=== PATIENT | male | born 1960 | race Caucasian/White ===

== ENCOUNTER 2021-05-07 13:17 | Inpatient (IN) | payer OTHER ==
[2021-05-07 16:00] VITALS: BMI 30.9
[2021-05-07] MEDS ORDERED: MAG HYDROX/AL HYDROX/SIMETH 30 ML UNIT-DOSE CUP PO PRN (18:28)
[2021-05-07] MEDS ORDERED: IBUPROFEN 400 MG TABLET (FP) PO PRN (18:28)
[2021-05-07] MEDS ORDERED: METHOCARBAMOL 500 MG TABLET PO PRN (18:28)
[2021-05-07] MEDS ORDERED: ACETAMINOPHEN 325 MG TABLET (FP) PO PRN ×2 (18:28)
[2021-05-07] MEDS ORDERED: MAGNESIUM CITRATE 300 ML BOTTLE PO PRN (18:28)
[2021-05-07] MEDS ORDERED: NICOTINE POLACRILEX 2 MG GUM BUC PRN (18:28)
[2021-05-07] MEDS ORDERED: MENTHOL/PHENOL 1 EACH UD MM PRN (18:28)
[2021-05-07] MEDS ORDERED: ONDANSETRON *ODT* 4 MG TABLET SL PRN (18:28)
[2021-05-07] MEDS ORDERED: MAGNESIUM HYDROX 2400MG/30ML ORAL SUSPENSION 30 ML CUP PO PRN (18:28)
[2021-05-07] MEDS ORDERED: BISMUTH SUBSALICYLATE 524 MG/30 ML PO PRN (18:28)
[2021-05-07] MEDS ORDERED: MELATONIN 5 MG TABLETS PO SCH (22:00)
[2021-05-07] MEDS ORDERED: THIAMINE HCL 100 MG TABLET (FP) PO SCH (22:00)
[2021-05-07] MEDS: hydrOXYzine PAMOATE 25 MG CAPSULE (FP) PO SCH (22:36)
[2021-05-08] MEDS: hydrOXYzine PAMOATE 25 MG CAPSULE (FP) PO SCH ×3 (06:03→14:51)
[2021-05-08] MEDS ORDERED: PRENATAL VITAMINS W/ FOLIC ACID TABLET (FP) PO SCH (10:00)
[2021-05-08 10:41] LABS: ALBUMIN 3.3 g/dl (3.4-5.0); CALCIUM 8.8 mg/dL (8.5-10.1)
[2021-05-08 10:42] LABS: BLOOD UREA NITROGEN 17.4 mg/dL (7-18)
[2021-05-08 10:46] LABS: BILIRUBIN,TOTAL 0.4 mg/dL (0.2-1); TOT PROT 6.6 g/dl (6.4-8.2)
[2021-05-08 11:03] LABS: HEMATOCRIT 36.9 % (35.4-49); HEMOGLOBIN 12.7 GM/dL (11.7-16.9); MCH 32.5 pg (25.7-33.7); MCHC 34.4 g/dl (32.0-35.9); MEAN CELL VOLUME 94.5 fl (80-96); MEAN PLT VOLUME 8.1 fl (7.5-11.1); PLATELET COUNT 181 10^3/uL (134-434); RBC 3.91 M/mm3 (4.00-5.60); RDW 13.4 % (11.9-15.9); WHITE BLOOD COUNT 3.8 K/mm3 (4.0-10.0)
[2021-05-08 13:23] VITALS: BP 138/95; PULSE 64; TEMP 96.9
[2021-05-09] MEDS ORDERED: ESCITALOPRAM OXALATE 20 MG TABLET PO SCH ×2 (10:00)
== END 2021-05-08 17:45 | disposition other institution (70) | DRG 897 ==
LOC: YASAS 13:17 → UNDOADMIN 18:26 → Y6N 18:26
PROVIDERS: ADMIT Allergy & Immunology; ATTEND Allergy & Immunology
PROC: HZ2ZZZZ Detoxification Services for Substance Abuse Treatment (ICD-10-PCS; principal; 2021-05-07)
DX: F10.230 Alcohol dependence with withdrawal, uncomplicated (principal); F14.20 Cocaine dependence, uncomplicated; F13.20 Sedative, hypnotic or anxiolytic dependence, uncomplicated; F19.259 Other psychoactive substance dependence with psychoactive substance-induced psychotic disorder, unspecified; F19.24 Other psychoactive substance dependence with psychoactive substance-induced mood disorder; F03.90 Unspecified dementia, unspecified severity, without behavioral disturbance, psychotic disturbance, mood disturbance, and anxiety; F20.9 Schizophrenia, unspecified; Z62.810 Personal history of physical and sexual abuse in childhood; Z87.891 Personal history of nicotine dependence; Z56.0 Unemployment, unspecified; Z59.0 Homelessness
CPT/HCPCS: 36415; 80053; 85027; 86780; C9803; U0003; U0005

== ENCOUNTER 2021-05-08 17:29 | Inpatient (IN) | payer OTHER ==
[2021-05-08] MEDS ORDERED: MAGNESIUM CITRATE 300 ML BOTTLE PO PRN (18:19)
[2021-05-08] MEDS ORDERED: MENTHOL/PHENOL 1 EACH UD MM PRN (18:19)
[2021-05-08] MEDS ORDERED: guaiFENesin 200 MG/10 ML 10 ML UNIT-DOSE CUPS PO PRN (18:19)
[2021-05-08] MEDS ORDERED: MAGNESIUM HYDROX 2400MG/30ML ORAL SUSPENSION 30 ML CUP PO PRN (18:19)
[2021-05-08] MEDS ORDERED: P-EPHED 60MG/TRIPROLIDI 2.5MG TABLET PO PRN (18:19)
[2021-05-08] MEDS ORDERED: LOPERAMIDE HCL 2 MG CAPSULE PO PRN (18:19)
[2021-05-08] MEDS ORDERED: NICOTINE POLACRILEX 2 MG GUM BUC PRN (18:19)
[2021-05-08] MEDS: MELATONIN 5 MG TABLETS PO SCH (21:27)
[2021-05-08] MEDS: THIAMINE HCL 100 MG TABLET (FP) PO SCH (21:27)
[2021-05-08] MEDS ORDERED: hydrOXYzine PAMOATE 25 MG CAPSULE (FP) PO SCH (22:00)
[2021-05-08] MEDS: CARVEDILOL 25 MG TABLET (FP) PO SCH (22:29)
[2021-05-09] MEDS: ACETAMINOPHEN 325 MG TABLET (FP) PO PRN (06:09)
[2021-05-09] MEDS: LOSARTAN POTASSIUM 50 MG TABLET PO SCH (09:37)
[2021-05-09] MEDS: PRENATAL VITAMINS W/ FOLIC ACID TABLET (FP) PO SCH (09:37)
[2021-05-09] MEDS: CARVEDILOL 25 MG TABLET (FP) PO SCH ×2 (09:38→21:34)
[2021-05-09] MEDS ORDERED: NICOTINE 7 MG/24 HOURS TOPICAL PATCH TD SCH (10:00)
[2021-05-09 11:40] LABS: HIV INTERPRETATION NEGATIVE (NEGATIVE)
[2021-05-09] MEDS ORDERED: PNEUMOC 13-VAL CONJ-DIP CRM/PF 0.5 ML DISP.SYRIN IM ONE (12:00)
[2021-05-09] MEDS ORDERED: PNEUMOCOCCAL 23 VACCINE 0.5 ML VIAL IM ONE (12:00)
[2021-05-09] MEDS ORDERED: FLU VACCINE (FLULAVAL) PF 60 MCG/0.5 ML SYRINGE 2020-2021 IM ONE (12:00)
[2021-05-09] MEDS: THIAMINE HCL 100 MG TABLET (FP) PO SCH (21:34)
[2021-05-09] MEDS: MELATONIN 5 MG TABLETS PO SCH (21:35)
[2021-05-10] MEDS: LOSARTAN POTASSIUM 50 MG TABLET PO SCH (09:46)
[2021-05-10] MEDS: PRENATAL VITAMINS W/ FOLIC ACID TABLET (FP) PO SCH (09:46)
[2021-05-10] MEDS: CARVEDILOL 25 MG TABLET (FP) PO SCH ×2 (09:47→21:36)
[2021-05-10] MEDS: hydrOXYzine PAMOATE 25 MG CAPSULE (FP) PO PRN (21:36)
[2021-05-10] MEDS: THIAMINE HCL 100 MG TABLET (FP) PO SCH (21:36)
[2021-05-10] MEDS: MELATONIN 5 MG TABLETS PO SCH (21:37)
[2021-05-11] MEDS: LOSARTAN POTASSIUM 50 MG TABLET PO SCH (09:49)
[2021-05-11] MEDS: PRENATAL VITAMINS W/ FOLIC ACID TABLET (FP) PO SCH (09:49)
[2021-05-11] MEDS: CARVEDILOL 25 MG TABLET (FP) PO SCH ×2 (09:49→21:46)
[2021-05-11] MEDS: hydrOXYzine PAMOATE 25 MG CAPSULE (FP) PO PRN ×2 (09:50→21:46)
[2021-05-11] MEDS: THIAMINE HCL 100 MG TABLET (FP) PO SCH (21:46)
[2021-05-11] MEDS: MELATONIN 5 MG TABLETS PO SCH (21:46)
[2021-05-12] MEDS: PRENATAL VITAMINS W/ FOLIC ACID TABLET (FP) PO SCH (09:44)
[2021-05-12] MEDS: CARVEDILOL 25 MG TABLET (FP) PO SCH ×2 (09:44→21:22)
[2021-05-12] MEDS: hydrOXYzine PAMOATE 25 MG CAPSULE (FP) PO PRN (09:44)
[2021-05-12] MEDS: LOSARTAN POTASSIUM 50 MG TABLET PO SCH (09:44)
[2021-05-12] MEDS: MAG HYDROX/AL HYDROX/SIMETH 30 ML UNIT-DOSE CUP PO PRN ×2 (14:56→21:23)
[2021-05-12] MEDS: MELATONIN 5 MG TABLETS PO SCH (21:22)
[2021-05-12] MEDS: THIAMINE HCL 100 MG TABLET (FP) PO SCH (21:22)
[2021-05-13] MEDS: CARVEDILOL 25 MG TABLET (FP) PO SCH ×2 (09:46→21:45)
[2021-05-13] MEDS: PRENATAL VITAMINS W/ FOLIC ACID TABLET (FP) PO SCH (09:46)
[2021-05-13] MEDS: LOSARTAN POTASSIUM 50 MG TABLET PO SCH (09:46)
[2021-05-13] MEDS: MAG HYDROX/AL HYDROX/SIMETH 30 ML UNIT-DOSE CUP PO PRN (09:48)
[2021-05-13] MEDS ORDERED: PANTOPRAZOLE 40 MG TABLET PO ONE (12:34)
[2021-05-13] MEDS: THIAMINE HCL 100 MG TABLET (FP) PO SCH (21:45)
[2021-05-13] MEDS: hydrOXYzine PAMOATE 25 MG CAPSULE (FP) PO PRN (21:46)
[2021-05-13] MEDS: MELATONIN 5 MG TABLETS PO SCH (21:46)
[2021-05-14] MEDS: PRENATAL VITAMINS W/ FOLIC ACID TABLET (FP) PO SCH (09:58)
[2021-05-14] MEDS: hydrOXYzine PAMOATE 25 MG CAPSULE (FP) PO PRN (09:59)
[2021-05-14] MEDS: PANTOPRAZOLE 40 MG TABLET PO SCH (09:59)
[2021-05-14] MEDS: LOSARTAN POTASSIUM 50 MG TABLET PO SCH (09:59)
[2021-05-14] MEDS: CARVEDILOL 25 MG TABLET (FP) PO SCH ×2 (09:59→22:49)
[2021-05-14] MEDS: MELATONIN 5 MG TABLETS PO SCH (21:16)
[2021-05-14] MEDS: THIAMINE HCL 100 MG TABLET (FP) PO SCH (21:16)
[2021-05-15] MEDS: CARVEDILOL 25 MG TABLET (FP) PO SCH ×2 (09:56→21:21)
[2021-05-15] MEDS: PRENATAL VITAMINS W/ FOLIC ACID TABLET (FP) PO SCH (09:56)
[2021-05-15] MEDS: LOSARTAN POTASSIUM 50 MG TABLET PO SCH (09:56)
[2021-05-15] MEDS: PANTOPRAZOLE 40 MG TABLET PO SCH (09:57)
[2021-05-15] MEDS: THIAMINE HCL 100 MG TABLET (FP) PO SCH (21:22)
[2021-05-15] MEDS: hydrOXYzine PAMOATE 25 MG CAPSULE (FP) PO PRN (21:22)
[2021-05-15] MEDS: MELATONIN 5 MG TABLETS PO SCH (21:22)
[2021-05-16] MEDS: PRENATAL VITAMINS W/ FOLIC ACID TABLET (FP) PO SCH (09:53)
[2021-05-16] MEDS: PANTOPRAZOLE 40 MG TABLET PO SCH (09:54)
[2021-05-16] MEDS: CARVEDILOL 25 MG TABLET (FP) PO SCH ×2 (09:54→21:28)
[2021-05-16] MEDS: IBUPROFEN 400 MG TABLET (FP) PO PRN (09:55)
[2021-05-16] MEDS: hydrOXYzine PAMOATE 25 MG CAPSULE (FP) PO PRN ×2 (09:57→21:28)
[2021-05-16] MEDS: LOSARTAN POTASSIUM 50 MG TABLET PO SCH (11:48)
[2021-05-16] MEDS: MELATONIN 5 MG TABLETS PO SCH (21:28)
[2021-05-16] MEDS: THIAMINE HCL 100 MG TABLET (FP) PO SCH (21:28)
[2021-05-17] MEDS: IBUPROFEN 400 MG TABLET (FP) PO PRN (06:28)
[2021-05-17] MEDS: PRENATAL VITAMINS W/ FOLIC ACID TABLET (FP) PO SCH (09:51)
[2021-05-17] MEDS: PANTOPRAZOLE 40 MG TABLET PO SCH (09:51)
[2021-05-17] MEDS: CARVEDILOL 25 MG TABLET (FP) PO SCH ×2 (09:51→21:40)
[2021-05-17] MEDS: LOSARTAN POTASSIUM 50 MG TABLET PO SCH (09:51)
[2021-05-17] MEDS: THIAMINE HCL 100 MG TABLET (FP) PO SCH (21:39)
[2021-05-17] MEDS: hydrOXYzine PAMOATE 25 MG CAPSULE (FP) PO PRN (21:40)
[2021-05-17] MEDS: MELATONIN 5 MG TABLETS PO SCH (21:41)
[2021-05-18] MEDS: ACETAMINOPHEN 325 MG TABLET (FP) PO PRN (00:40)
[2021-05-18] MEDS: LOSARTAN POTASSIUM 50 MG TABLET PO SCH (09:44)
[2021-05-18] MEDS: PRENATAL VITAMINS W/ FOLIC ACID TABLET (FP) PO SCH (09:44)
[2021-05-18] MEDS: CARVEDILOL 25 MG TABLET (FP) PO SCH ×2 (09:44→21:33)
[2021-05-18] MEDS: PANTOPRAZOLE 40 MG TABLET PO SCH (09:44)
[2021-05-18] MEDS: THIAMINE HCL 100 MG TABLET (FP) PO SCH (21:33)
[2021-05-18] MEDS: MELATONIN 5 MG TABLETS PO SCH (21:33)
[2021-05-19] MEDS: IBUPROFEN 400 MG TABLET (FP) PO PRN (01:36)
[2021-05-19] MEDS ORDERED: MASKS NR ONE (07:20)
[2021-05-19] MEDS: LOSARTAN POTASSIUM 50 MG TABLET PO SCH (09:47)
[2021-05-19] MEDS: PANTOPRAZOLE 40 MG TABLET PO SCH (09:47)
[2021-05-19] MEDS: PRENATAL VITAMINS W/ FOLIC ACID TABLET (FP) PO SCH (09:47)
[2021-05-19] MEDS: CARVEDILOL 25 MG TABLET (FP) PO SCH ×2 (09:48→21:25)
[2021-05-19] MEDS: MELATONIN 5 MG TABLETS PO SCH (21:25)
[2021-05-19] MEDS: THIAMINE HCL 100 MG TABLET (FP) PO SCH (21:25)
[2021-05-20] MEDS: ACETAMINOPHEN 325 MG TABLET (FP) PO PRN (07:31)
[2021-05-20] MEDS: PRENATAL VITAMINS W/ FOLIC ACID TABLET (FP) PO SCH (09:52)
[2021-05-20] MEDS: LOSARTAN POTASSIUM 50 MG TABLET PO SCH (09:52)
[2021-05-20] MEDS: CARVEDILOL 25 MG TABLET (FP) PO SCH ×2 (09:52→21:43)
[2021-05-20] MEDS: PANTOPRAZOLE 40 MG TABLET PO SCH (09:52)
[2021-05-20] MEDS: MELATONIN 5 MG TABLETS PO SCH (21:43)
[2021-05-20] MEDS: THIAMINE HCL 100 MG TABLET (FP) PO SCH (21:43)
[2021-05-20] MEDS: hydrOXYzine PAMOATE 25 MG CAPSULE (FP) PO PRN (21:43)
[2021-05-21 07:03] VITALS: TEMP 97.1
[2021-05-21] MEDS: LOSARTAN POTASSIUM 50 MG TABLET PO SCH (09:05)
[2021-05-21] MEDS: CARVEDILOL 25 MG TABLET (FP) PO SCH (09:05)
[2021-05-21] MEDS: PRENATAL VITAMINS W/ FOLIC ACID TABLET (FP) PO SCH (09:05)
[2021-05-21] MEDS: PANTOPRAZOLE 40 MG TABLET PO SCH (09:05)
[2021-05-21 11:08] VITALS: BP 127/69; PULSE 74
== END 2021-05-21 09:30 | disposition home or self-care (01) | DRG 895 ==
LOC: YASAS 17:29 → Y5N 17:31
PROVIDERS: ADMIT Allergy & Immunology; ATTEND Allergy & Immunology
PROC: HZ42ZZZ Group Counseling for Substance Abuse Treatment, Cognitive-Behavioral (ICD-10-PCS; principal; 2021-05-08)
DX: F10.20 Alcohol dependence, uncomplicated (principal); F14.20 Cocaine dependence, uncomplicated; F19.24 Other psychoactive substance dependence with psychoactive substance-induced mood disorder; F03.90 Unspecified dementia, unspecified severity, without behavioral disturbance, psychotic disturbance, mood disturbance, and anxiety; I10 Essential (primary) hypertension; M17.12 Unilateral primary osteoarthritis, left knee; Z87.891 Personal history of nicotine dependence
CPT/HCPCS: 36415; 87389; 90732; G0009; Q2036

== ENCOUNTER 2021-06-22 10:47 | Inpatient (IN) | payer OTHER ==
[2021-06-22 11:10] VITALS: BMI 32.6
[2021-06-22] MEDS ORDERED: MENTHOL/PHENOL 1 EACH UD MM PRN (11:37)
[2021-06-22] MEDS ORDERED: BISMUTH SUBSALICYLATE 262 MG/15 ML BTL PO PRN (11:37)
[2021-06-22] MEDS ORDERED: MAGNESIUM CITRATE 300 ML BOTTLE PO PRN (11:37)
[2021-06-22] MEDS ORDERED: METHOCARBAMOL 500 MG TABLET PO PRN (11:37)
[2021-06-22] MEDS ORDERED: ONDANSETRON *ODT* 4 MG TABLET SL PRN (11:37)
[2021-06-22] MEDS ORDERED: MAG HYDROX/AL HYDROX/SIMETH 30 ML UNIT-DOSE CUP PO PRN (11:37)
[2021-06-22] MEDS ORDERED: NICOTINE POLACRILEX 2 MG GUM BUC PRN (11:37)
[2021-06-22] MEDS ORDERED: ACETAMINOPHEN 325 MG TABLET (FP) PO PRN ×2 (11:37)
[2021-06-22] MEDS ORDERED: IBUPROFEN 400 MG TABLET (FP) PO PRN (11:37)
[2021-06-22] MEDS ORDERED: MAGNESIUM HYDROX 2400MG/30ML ORAL SUSPENSION 30 ML CUP PO PRN (11:37)
[2021-06-22] MEDS: hydrOXYzine PAMOATE 25 MG CAPSULE (FP) PO SCH ×3 (13:20→22:49)
[2021-06-22 13:30] LABS: HEMATOCRIT 39.2 % (35.4-49); MCH 32.9 pg (25.7-33.7); MCHC 35.7 g/dl (32.0-35.9); PLATELET COUNT 248 10^3/uL (134-434); RBC 4.26 M/mm3 (4.00-5.60); RDW 13.5 % (11.9-15.9); WHITE BLOOD COUNT 5.9 K/mm3 (4.0-10.0)
[2021-06-22 13:35] LABS: ALBUMIN 3.9 g/dl (3.4-5.0); CALCIUM 8.9 mg/dL (8.5-10.1)
[2021-06-22 13:38] LABS: BILIRUBIN,TOTAL 1.1 mg/dL (0.2-1); TOT PROT 8.5 g/dl (6.4-8.2)
[2021-06-22 13:39] LABS: CREATININE 1.2 mg/dL (0.55-1.3)
[2021-06-22 13:55] LABS: SYPHILIS W/ RPR CONF NON-REACTIVE (NONREACTIVE)
[2021-06-22 19:20] LABS: HIV INTERPRETATION NEGATIVE (NEGATIVE)
[2021-06-22] MEDS: MELATONIN 5 MG TABLETS PO SCH (22:46)
[2021-06-22] MEDS: THIAMINE HCL 100 MG TABLET (FP) PO SCH (22:46)
[2021-06-22] MEDS: CARVEDILOL 25 MG TABLET (FP) PO SCH (23:14)
[2021-06-23] MEDS: hydrOXYzine PAMOATE 25 MG CAPSULE (FP) PO SCH ×5 (05:37→22:16)
[2021-06-23] MEDS: PRENATAL VITAMINS W/ FOLIC ACID TABLET (FP) PO SCH (09:22)
[2021-06-23] MEDS: CARVEDILOL 25 MG TABLET (FP) PO SCH ×2 (09:22→22:16)
[2021-06-23] MEDS: LOSARTAN POTASSIUM 50 MG TABLET PO SCH (09:22)
[2021-06-23] MEDS: diazePAM 5 MG TABLET PO SCH ×3 (11:39→22:16)
[2021-06-23] MEDS: MELATONIN 5 MG TABLETS PO SCH (22:16)
[2021-06-23] MEDS: THIAMINE HCL 100 MG TABLET (FP) PO SCH (22:16)
[2021-06-24] MEDS: diazePAM 5 MG TABLET PO SCH ×4 (06:05→22:29)
[2021-06-24] MEDS: hydrOXYzine PAMOATE 25 MG CAPSULE (FP) PO SCH ×5 (06:05→22:29)
[2021-06-24] MEDS: CARVEDILOL 25 MG TABLET (FP) PO SCH ×2 (10:07→22:29)
[2021-06-24] MEDS: LOSARTAN POTASSIUM 50 MG TABLET PO SCH (10:07)
[2021-06-24] MEDS: PRENATAL VITAMINS W/ FOLIC ACID TABLET (FP) PO SCH (10:07)
[2021-06-24] MEDS: THIAMINE HCL 100 MG TABLET (FP) PO SCH (22:29)
[2021-06-24] MEDS: MELATONIN 5 MG TABLETS PO SCH (22:29)
[2021-06-25] MEDS: hydrOXYzine PAMOATE 25 MG CAPSULE (FP) PO SCH ×5 (05:30→22:13)
[2021-06-25] MEDS: diazePAM 5 MG TABLET PO SCH ×3 (05:33→22:14)
[2021-06-25] MEDS: CARVEDILOL 25 MG TABLET (FP) PO SCH ×2 (10:45→22:14)
[2021-06-25] MEDS: LOSARTAN POTASSIUM 50 MG TABLET PO SCH (10:45)
[2021-06-25] MEDS: diazePAM 5 MG TABLET PO PRN (10:46)
[2021-06-25] MEDS: PRENATAL VITAMINS W/ FOLIC ACID TABLET (FP) PO SCH (10:46)
[2021-06-25] MEDS: THIAMINE HCL 100 MG TABLET (FP) PO SCH (22:13)
[2021-06-25] MEDS: MELATONIN 5 MG TABLETS PO SCH (22:14)
[2021-06-26] MEDS: hydrOXYzine PAMOATE 25 MG CAPSULE (FP) PO SCH ×5 (05:33→22:22)
[2021-06-26] MEDS: diazePAM 5 MG TABLET PO SCH ×2 (05:34→18:17)
[2021-06-26] MEDS: diazePAM 5 MG TABLET PO PRN (08:57)
[2021-06-26] MEDS: PRENATAL VITAMINS W/ FOLIC ACID TABLET (FP) PO SCH (10:06)
[2021-06-26] MEDS: CARVEDILOL 25 MG TABLET (FP) PO SCH ×2 (10:06→22:22)
[2021-06-26] MEDS: LOSARTAN POTASSIUM 50 MG TABLET PO SCH (10:06)
[2021-06-26] MEDS: MELATONIN 5 MG TABLETS PO SCH (22:22)
[2021-06-26] MEDS: THIAMINE HCL 100 MG TABLET (FP) PO SCH (22:22)
[2021-06-27] MEDS: hydrOXYzine PAMOATE 25 MG CAPSULE (FP) PO SCH ×4 (05:41→17:41)
[2021-06-27] MEDS ORDERED: diazePAM 5 MG TABLET PO ONE (06:00)
[2021-06-27] MEDS: LOSARTAN POTASSIUM 50 MG TABLET PO SCH (10:20)
[2021-06-27] MEDS: CARVEDILOL 25 MG TABLET (FP) PO SCH (10:20)
[2021-06-27] MEDS: PRENATAL VITAMINS W/ FOLIC ACID TABLET (FP) PO SCH (10:20)
[2021-06-27 18:03] VITALS: TEMP 96.9
[2021-06-27 18:05] VITALS: BP 119/68; PULSE 85
== END 2021-06-27 18:30 | disposition other institution (70) | DRG 897 ==
LOC: YASAS 10:47 → Y3N 11:57
PROVIDERS: ADMIT Allergy & Immunology; ATTEND Allergy & Immunology
PROC: HZ2ZZZZ Detoxification Services for Substance Abuse Treatment (ICD-10-PCS; principal; 2021-06-22)
DX: F10.230 Alcohol dependence with withdrawal, uncomplicated (principal); F14.20 Cocaine dependence, uncomplicated; F17.210 Nicotine dependence, cigarettes, uncomplicated; F19.24 Other psychoactive substance dependence with psychoactive substance-induced mood disorder; F19.950 Other psychoactive substance use, unspecified with psychoactive substance-induced psychotic disorder with delusions; I10 Essential (primary) hypertension; R73.9 Hyperglycemia, unspecified; Z59.0 Homelessness
CPT/HCPCS: 36415; 80053; 82947; 82962; 85027; 86780; 87389; C9803; U0003; U0005

== ENCOUNTER 2021-06-27 18:39 | Inpatient (IN) | payer OTHER ==
[~2021-06-27 18:39] MED LIST: ACETAMINOPHEN 325 MG TABLET (FP) PO PRN; LOPERAMIDE HCL 2 MG CAPSULE PO PRN; MAG HYDROX/AL HYDROX/SIMETH 30 ML UNIT-DOSE CUP PO PRN; MAGNESIUM CITRATE 300 ML BOTTLE PO PRN; MAGNESIUM HYDROX 2400MG/30ML ORAL SUSPENSION 30 ML CUP PO PRN; P-EPHED 60MG/TRIPROLIDI 2.5MG TABLET PO PRN; guaiFENesin 200 MG/10 ML 10 ML UNIT-DOSE CUPS PO PRN
[2021-06-27] MEDS ORDERED: MELATONIN 5 MG TABLETS PO SCH (22:00)
[2021-06-27] MEDS: hydrOXYzine PAMOATE 25 MG CAPSULE (FP) PO SCH ×3 (22:49→23:01)
[2021-06-27] MEDS ORDERED: PT OWN MED DRAWER 7, Y5N ONE (22:56)
[2021-06-27] MEDS: THIAMINE HCL 100 MG TABLET (FP) PO SCH (22:59)
[2021-06-27] MEDS: CARVEDILOL 25 MG TABLET (FP) PO SCH (22:59)
[2021-06-28] MEDS: hydrOXYzine PAMOATE 25 MG CAPSULE (FP) PO SCH ×5 (06:30→21:26)
[2021-06-28] MEDS ORDERED: PT OWN MED DRAWER 7, Y5N ONE ×2 (08:53→19:30)
[2021-06-28] MEDS: PRENATAL VITAMINS W/ FOLIC ACID TABLET (FP) PO SCH (10:27)
[2021-06-28] MEDS: LOSARTAN POTASSIUM 50 MG TABLET PO SCH (10:27)
[2021-06-28] MEDS: CARVEDILOL 25 MG TABLET (FP) PO SCH ×2 (10:27→21:26)
[2021-06-28] MEDS ORDERED: ESCITALOPRAM OXALATE 10 MG TABLET ONE (12:15)
[2021-06-28] MEDS: ESCITALOPRAM OXALATE 20 MG TABLET PO SCH (12:42)
[2021-06-28] MEDS: THIAMINE HCL 100 MG TABLET (FP) PO SCH (21:26)
[2021-06-28] MEDS: MELATONIN 5 MG TABLETS PO SCH (21:26)
[2021-06-29] MEDS: hydrOXYzine PAMOATE 25 MG CAPSULE (FP) PO SCH ×5 (07:35→21:38)
[2021-06-29] MEDS ORDERED: ESCITALOPRAM OXALATE 10 MG TABLET ONE (08:23)
[2021-06-29] MEDS ORDERED: PT OWN MED DRAWER 7, Y5N ONE ×2 (08:24→13:19)
[2021-06-29] MEDS: LOSARTAN POTASSIUM 50 MG TABLET PO SCH (10:12)
[2021-06-29] MEDS: CARVEDILOL 25 MG TABLET (FP) PO SCH ×2 (10:12→21:37)
[2021-06-29] MEDS: PRENATAL VITAMINS W/ FOLIC ACID TABLET (FP) PO SCH (10:13)
[2021-06-29] MEDS: ESCITALOPRAM OXALATE 20 MG TABLET PO SCH (10:13)
[2021-06-29] MEDS: MELATONIN 5 MG TABLETS PO SCH (21:37)
[2021-06-29] MEDS: THIAMINE HCL 100 MG TABLET (FP) PO SCH (21:38)
[2021-06-30] MEDS: hydrOXYzine PAMOATE 25 MG CAPSULE (FP) PO SCH (06:31)
[2021-06-30] MEDS ORDERED: ESCITALOPRAM OXALATE 10 MG TABLET ONE (08:53)
[2021-06-30] MEDS ORDERED: PT OWN MED DRAWER 7, Y5N ONE ×2 (08:56→19:21)
[2021-06-30] MEDS: IBUPROFEN 400 MG TABLET (FP) PO PRN (09:55)
[2021-06-30] MEDS: LOSARTAN POTASSIUM 50 MG TABLET PO SCH (09:56)
[2021-06-30] MEDS: ESCITALOPRAM OXALATE 20 MG TABLET PO SCH (09:57)
[2021-06-30] MEDS: CARVEDILOL 25 MG TABLET (FP) PO SCH ×2 (09:57→21:28)
[2021-06-30] MEDS: PRENATAL VITAMINS W/ FOLIC ACID TABLET (FP) PO SCH (09:57)
[2021-06-30] MEDS: THIAMINE HCL 100 MG TABLET (FP) PO SCH (21:27)
[2021-06-30] MEDS: MELATONIN 5 MG TABLETS PO SCH (21:27)
[2021-07-01] MEDS: IBUPROFEN 400 MG TABLET (FP) PO PRN (06:01)
[2021-07-01] MEDS ORDERED: ESCITALOPRAM OXALATE 10 MG TABLET ONE (09:01)
[2021-07-01] MEDS ORDERED: PT OWN MED DRAWER 7, Y5N ONE ×3 (09:02→19:45)
[2021-07-01] MEDS: LOSARTAN POTASSIUM 50 MG TABLET PO SCH (09:42)
[2021-07-01] MEDS: CARVEDILOL 25 MG TABLET (FP) PO SCH ×2 (09:42→21:23)
[2021-07-01] MEDS: ESCITALOPRAM OXALATE 20 MG TABLET PO SCH (09:43)
[2021-07-01] MEDS: PRENATAL VITAMINS W/ FOLIC ACID TABLET (FP) PO SCH (09:43)
[2021-07-01] MEDS: THIAMINE HCL 100 MG TABLET (FP) PO SCH (21:23)
[2021-07-01] MEDS: MELATONIN 5 MG TABLETS PO SCH (21:23)
[2021-07-02] MEDS ORDERED: ESCITALOPRAM OXALATE 10 MG TABLET ONE (08:53)
[2021-07-02] MEDS ORDERED: PT OWN MED DRAWER 7, Y5N ONE (08:54)
[2021-07-02] MEDS: ESCITALOPRAM OXALATE 20 MG TABLET PO SCH (09:51)
[2021-07-02] MEDS: CARVEDILOL 25 MG TABLET (FP) PO SCH ×2 (09:51→21:37)
[2021-07-02] MEDS: LOSARTAN POTASSIUM 50 MG TABLET PO SCH (09:52)
[2021-07-02] MEDS: PRENATAL VITAMINS W/ FOLIC ACID TABLET (FP) PO SCH (09:52)
[2021-07-02] MEDS: THIAMINE HCL 100 MG TABLET (FP) PO SCH (21:37)
[2021-07-02] MEDS: MELATONIN 5 MG TABLETS PO SCH (21:37)
[2021-07-03] MEDS: LOSARTAN POTASSIUM 50 MG TABLET PO SCH (10:06)
[2021-07-03] MEDS: PRENATAL VITAMINS W/ FOLIC ACID TABLET (FP) PO SCH (10:07)
[2021-07-03] MEDS: CARVEDILOL 25 MG TABLET (FP) PO SCH ×2 (10:07→21:22)
[2021-07-03] MEDS: ESCITALOPRAM OXALATE 20 MG TABLET PO SCH (10:07)
[2021-07-03] MEDS: THIAMINE HCL 100 MG TABLET (FP) PO SCH (21:22)
[2021-07-03] MEDS: MELATONIN 5 MG TABLETS PO SCH (21:22)
[2021-07-04] MEDS: IBUPROFEN 400 MG TABLET (FP) PO PRN (06:44)
[2021-07-04] MEDS: PRENATAL VITAMINS W/ FOLIC ACID TABLET (FP) PO SCH (09:30)
[2021-07-04] MEDS: ESCITALOPRAM OXALATE 20 MG TABLET PO SCH (09:31)
[2021-07-04] MEDS: CARVEDILOL 25 MG TABLET (FP) PO SCH ×2 (09:31→21:12)
[2021-07-04] MEDS: LOSARTAN POTASSIUM 50 MG TABLET PO SCH (09:31)
[2021-07-04] MEDS: MELATONIN 5 MG TABLETS PO SCH (21:12)
[2021-07-04] MEDS: THIAMINE HCL 100 MG TABLET (FP) PO SCH (21:12)
[2021-07-04] MEDS: hydrOXYzine PAMOATE 25 MG CAPSULE (FP) PO PRN (21:12)
[2021-07-05] MEDS: CARVEDILOL 25 MG TABLET (FP) PO SCH ×2 (09:35→21:26)
[2021-07-05] MEDS: PRENATAL VITAMINS W/ FOLIC ACID TABLET (FP) PO SCH (09:35)
[2021-07-05] MEDS: LOSARTAN POTASSIUM 50 MG TABLET PO SCH (09:35)
[2021-07-05] MEDS: ESCITALOPRAM OXALATE 20 MG TABLET PO SCH (09:35)
[2021-07-05] MEDS: THIAMINE HCL 100 MG TABLET (FP) PO SCH (21:26)
[2021-07-05] MEDS: MELATONIN 5 MG TABLETS PO SCH (21:26)
[2021-07-06] MEDS: LOSARTAN POTASSIUM 50 MG TABLET PO SCH (10:04)
[2021-07-06] MEDS: ESCITALOPRAM OXALATE 20 MG TABLET PO SCH (10:05)
[2021-07-06] MEDS: CARVEDILOL 25 MG TABLET (FP) PO SCH ×2 (10:05→21:11)
[2021-07-06] MEDS: PRENATAL VITAMINS W/ FOLIC ACID TABLET (FP) PO SCH (10:05)
[2021-07-06] MEDS: MELATONIN 5 MG TABLETS PO SCH (21:12)
[2021-07-06] MEDS: THIAMINE HCL 100 MG TABLET (FP) PO SCH (21:12)
[2021-07-07] MEDS: IBUPROFEN 400 MG TABLET (FP) PO PRN (06:54)
[2021-07-07] MEDS: CARVEDILOL 25 MG TABLET (FP) PO SCH ×2 (09:28→21:03)
[2021-07-07] MEDS: PRENATAL VITAMINS W/ FOLIC ACID TABLET (FP) PO SCH (09:28)
[2021-07-07] MEDS: ESCITALOPRAM OXALATE 20 MG TABLET PO SCH (09:28)
[2021-07-07] MEDS: LOSARTAN POTASSIUM 50 MG TABLET PO SCH (09:28)
[2021-07-07] MEDS: THIAMINE HCL 100 MG TABLET (FP) PO SCH (21:03)
[2021-07-07] MEDS: MELATONIN 5 MG TABLETS PO SCH (21:03)
[2021-07-08] MEDS: LOSARTAN POTASSIUM 50 MG TABLET PO SCH (09:34)
[2021-07-08] MEDS: PRENATAL VITAMINS W/ FOLIC ACID TABLET (FP) PO SCH (09:35)
[2021-07-08] MEDS: ESCITALOPRAM OXALATE 20 MG TABLET PO SCH (09:35)
[2021-07-08] MEDS: CARVEDILOL 25 MG TABLET (FP) PO SCH ×2 (09:35→21:11)
[2021-07-08] MEDS: THIAMINE HCL 100 MG TABLET (FP) PO SCH (21:11)
[2021-07-08] MEDS: MELATONIN 5 MG TABLETS PO SCH (21:12)
[2021-07-09] MEDS: CARVEDILOL 25 MG TABLET (FP) PO SCH ×2 (09:36→21:03)
[2021-07-09] MEDS: ESCITALOPRAM OXALATE 20 MG TABLET PO SCH (09:36)
[2021-07-09] MEDS: PRENATAL VITAMINS W/ FOLIC ACID TABLET (FP) PO SCH (09:36)
[2021-07-09] MEDS: LOSARTAN POTASSIUM 50 MG TABLET PO SCH (09:36)
[2021-07-09] MEDS: IBUPROFEN 400 MG TABLET (FP) PO PRN (09:38)
[2021-07-09] MEDS: THIAMINE HCL 100 MG TABLET (FP) PO SCH (21:02)
[2021-07-09] MEDS: MELATONIN 5 MG TABLETS PO SCH (21:03)
[2021-07-10] MEDS: CARVEDILOL 25 MG TABLET (FP) PO SCH ×2 (09:18→21:14)
[2021-07-10] MEDS: LOSARTAN POTASSIUM 50 MG TABLET PO SCH (09:18)
[2021-07-10] MEDS: ESCITALOPRAM OXALATE 20 MG TABLET PO SCH (09:18)
[2021-07-10] MEDS: PRENATAL VITAMINS W/ FOLIC ACID TABLET (FP) PO SCH (09:18)
[2021-07-10] MEDS: MELATONIN 5 MG TABLETS PO SCH (21:15)
[2021-07-10] MEDS: THIAMINE HCL 100 MG TABLET (FP) PO SCH (21:15)
[2021-07-11] MEDS: IBUPROFEN 400 MG TABLET (FP) PO PRN (04:54)
[2021-07-11] MEDS ORDERED: PT OWN MED DRAWER 7, Y5N ONE (08:27)
[2021-07-11] MEDS: PRENATAL VITAMINS W/ FOLIC ACID TABLET (FP) PO SCH (09:18)
[2021-07-11] MEDS: CARVEDILOL 25 MG TABLET (FP) PO SCH ×2 (09:18→21:28)
[2021-07-11] MEDS: LOSARTAN POTASSIUM 50 MG TABLET PO SCH (09:18)
[2021-07-11] MEDS: ESCITALOPRAM OXALATE 20 MG TABLET PO SCH (09:18)
[2021-07-11] MEDS: THIAMINE HCL 100 MG TABLET (FP) PO SCH (21:28)
[2021-07-11] MEDS: hydrOXYzine PAMOATE 25 MG CAPSULE (FP) PO PRN (21:28)
[2021-07-11] MEDS: MELATONIN 5 MG TABLETS PO SCH (21:29)
[2021-07-12 07:18] VITALS: TEMP 97.1
[2021-07-12] MEDS ORDERED: PT OWN MED DRAWER 7, Y5N ONE (08:47)
[2021-07-12] MEDS: ESCITALOPRAM OXALATE 20 MG TABLET PO SCH (09:00)
[2021-07-12] MEDS: PRENATAL VITAMINS W/ FOLIC ACID TABLET (FP) PO SCH (09:00)
[2021-07-12] MEDS: CARVEDILOL 25 MG TABLET (FP) PO SCH (09:00)
[2021-07-12] MEDS: LOSARTAN POTASSIUM 50 MG TABLET PO SCH (09:00)
[2021-07-12 09:09] VITALS: BP 111/73; PULSE 71
== END 2021-07-12 09:37 | disposition home or self-care (01) | DRG 895 ==
LOC: YASAS 18:39 → Y3E 18:41
PROVIDERS: ADMIT Allergy & Immunology; ATTEND Allergy & Immunology
PROC: HZ42ZZZ Group Counseling for Substance Abuse Treatment, Cognitive-Behavioral (ICD-10-PCS; principal; 2021-06-27)
DX: F10.20 Alcohol dependence, uncomplicated (principal); F14.20 Cocaine dependence, uncomplicated; F19.259 Other psychoactive substance dependence with psychoactive substance-induced psychotic disorder, unspecified; F19.24 Other psychoactive substance dependence with psychoactive substance-induced mood disorder; F41.9 Anxiety disorder, unspecified; F32.9 Major depressive disorder, single episode, unspecified; F43.10 Post-traumatic stress disorder, unspecified; I10 Essential (primary) hypertension; F03.90 Unspecified dementia, unspecified severity, without behavioral disturbance, psychotic disturbance, mood disturbance, and anxiety; M17.12 Unilateral primary osteoarthritis, left knee; R73.9 Hyperglycemia, unspecified; Z62.810 Personal history of physical and sexual abuse in childhood; Z59.0 Homelessness

== ENCOUNTER 2022-08-08 16:59 | Inpatient (IN) | payer OTHER ==
[2022-08-08 18:42] VITALS: BMI 30.1
[2022-08-08] MEDS ORDERED: BENZOCAINE/MENTHOL (CHLORASEPTIC ) LOZENGE MM PRN (19:54)
[2022-08-08] MEDS ORDERED: LOPERAMIDE HCL 2 MG CAPSULE PO PRN (19:54)
[2022-08-08] MEDS ORDERED: ONDANSETRON *ODT* 4 MG TABLET SL PRN (19:54)
[2022-08-08] MEDS ORDERED: DICYCLOMINE HCL 10 MG CAPSULE PO PRN (19:54)
[2022-08-08] MEDS ORDERED: guaiFENesin 200 MG/10 ML 10 ML UNIT-DOSE CUPS PO PRN (19:54)
[2022-08-08] MEDS ORDERED: ACETAMINOPHEN 325 MG TABLET (FP) PO PRN ×2 (19:54)
[2022-08-08] MEDS ORDERED: BISMUTH SUBSALICYLATE 524 MG/30 ML PO PRN (19:54)
[2022-08-08] MEDS ORDERED: P-EPHED 60MG/TRIPROLIDI 2.5MG TABLET PO PRN (19:54)
[2022-08-08] MEDS ORDERED: MAG HYDROX/AL HYDROX/SIMETH 30 ML UNIT-DOSE CUP PO PRN (19:54)
[2022-08-08] MEDS ORDERED: MAGNESIUM CITRATE 300 ML BOTTLE PO PRN (19:54)
[2022-08-08] MEDS ORDERED: IBUPROFEN 400 MG TABLET (FP) PO PRN (19:54)
[2022-08-08] MEDS ORDERED: MAGNESIUM HYDROX 2400MG/30ML ORAL SUSPENSION 30 ML CUP PO PRN (19:54)
[2022-08-08] MEDS: MELATONIN 5 MG TABLETS PO PRN (21:46)
[2022-08-08] MEDS: THIAMINE HCL 100 MG TABLET (FP) PO SCH (21:46)
[2022-08-08] MEDS: hydrOXYzine PAMOATE 25 MG CAPSULE (FP) PO PRN (21:46)
[2022-08-08] MEDS: METHOCARBAMOL 500 MG TABLET PO PRN (21:47)
[2022-08-09] MEDS ORDERED: diazePAM 5 MG TABLET PO PRN (10:06)
[2022-08-09] MEDS: PRENATAL VITAMINS W/ FOLIC ACID TABLET (FP) PO SCH (11:08)
[2022-08-09] MEDS: CARVEDILOL 25 MG TABLET (FP) PO SCH ×2 (11:08→23:03)
[2022-08-09] MEDS: LOSARTAN POTASSIUM 50 MG TABLET PO SCH (11:08)
[2022-08-09] MEDS: diazePAM 5 MG TABLET PO SCH ×3 (11:09→23:03)
[2022-08-09] MEDS: IBUPROFEN 600 MG TABLET (FP) PO PRN (11:13)
[2022-08-09] MEDS: METHOCARBAMOL 500 MG TABLET PO PRN ×2 (11:13→18:08)
[2022-08-09 11:30] LABS: HEMATOCRIT 39.4 % (35.4-49); HEMOGLOBIN 13.5 GM/dL (11.7-16.9); MCH 32.5 pg (25.7-33.7); MCHC 34.3 g/dl (32.0-35.9); MEAN CELL VOLUME 94.9 fl (80-96); RBC 4.15 M/mm3 (4.00-5.60); WHITE BLOOD COUNT 3.4 K/mm3 (4.0-10.0)
[2022-08-09 11:31] LABS: MEAN PLT VOLUME 8.1 fl (7.5-11.1); PLATELET COUNT 199 10^3/uL (134-434)
[2022-08-09 11:39] LABS: CALCIUM 9.6 mg/dL (8.5-10.1)
[2022-08-09 11:40] LABS: ALBUMIN 3.8 g/dl (3.4-5.0); BLOOD UREA NITROGEN 24.4 mg/dL (7-18)
[2022-08-09 11:42] LABS: CREATININE 1.3 mg/dL (0.55-1.3)
[2022-08-09 11:44] LABS: BILIRUBIN,TOTAL 0.6 mg/dL (0.2-1); TOT PROT 7.8 g/dl (6.4-8.2)
[2022-08-09] MEDS: hydrOXYzine PAMOATE 25 MG CAPSULE (FP) PO PRN ×2 (18:08→23:04)
[2022-08-09] MEDS: THIAMINE HCL 100 MG TABLET (FP) PO SCH (23:05)
[2022-08-09] MEDS: MELATONIN 5 MG TABLETS PO PRN (23:06)
[2022-08-10] MEDS: diazePAM 5 MG TABLET PO SCH ×4 (06:00→23:07)
[2022-08-10] MEDS: PRENATAL VITAMINS W/ FOLIC ACID TABLET (FP) PO SCH (11:33)
[2022-08-10] MEDS: LOSARTAN POTASSIUM 50 MG TABLET PO SCH (11:33)
[2022-08-10] MEDS: CARVEDILOL 25 MG TABLET (FP) PO SCH ×2 (11:33→23:17)
[2022-08-10] MEDS: hydrOXYzine PAMOATE 25 MG CAPSULE (FP) PO PRN ×2 (18:16→23:07)
[2022-08-10] MEDS: THIAMINE HCL 100 MG TABLET (FP) PO SCH (23:08)
[2022-08-10] MEDS: MELATONIN 5 MG TABLETS PO PRN (23:08)
[2022-08-11] MEDS: diazePAM 5 MG TABLET PO SCH ×3 (06:03→23:22)
[2022-08-11] MEDS: METHOCARBAMOL 500 MG TABLET PO PRN (06:17)
[2022-08-11] MEDS: ESCITALOPRAM OXALATE 20 MG TABLET PO SCH (10:37)
[2022-08-11] MEDS: CARVEDILOL 25 MG TABLET (FP) PO SCH ×2 (10:38→23:32)
[2022-08-11] MEDS: PRENATAL VITAMINS W/ FOLIC ACID TABLET (FP) PO SCH (10:38)
[2022-08-11] MEDS: LOSARTAN POTASSIUM 50 MG TABLET PO SCH (10:38)
[2022-08-11] MEDS: hydrOXYzine PAMOATE 25 MG CAPSULE (FP) PO PRN ×2 (10:38→23:26)
[2022-08-11] MEDS: THIAMINE HCL 100 MG TABLET (FP) PO SCH (23:22)
[2022-08-11] MEDS: MELATONIN 5 MG TABLETS PO PRN (23:23)
[2022-08-12] MEDS: diazePAM 5 MG TABLET PO SCH ×2 (05:50→17:57)
[2022-08-12] MEDS: PRENATAL VITAMINS W/ FOLIC ACID TABLET (FP) PO SCH (11:10)
[2022-08-12] MEDS: CARVEDILOL 25 MG TABLET (FP) PO SCH ×2 (11:10→23:10)
[2022-08-12] MEDS: ESCITALOPRAM OXALATE 20 MG TABLET PO SCH (11:10)
[2022-08-12] MEDS: LOSARTAN POTASSIUM 50 MG TABLET PO SCH (11:11)
[2022-08-12] MEDS: hydrOXYzine PAMOATE 25 MG CAPSULE (FP) PO PRN ×2 (11:12→23:08)
[2022-08-12] MEDS: METHOCARBAMOL 500 MG TABLET PO PRN ×2 (11:13→23:09)
[2022-08-12 21:37] VITALS: RESP 18
[2022-08-12] MEDS: THIAMINE HCL 100 MG TABLET (FP) PO SCH (23:08)
[2022-08-12] MEDS: IBUPROFEN 600 MG TABLET (FP) PO PRN (23:08)
[2022-08-12] MEDS: MELATONIN 5 MG TABLETS PO PRN (23:08)
[2022-08-13] MEDS ORDERED: diazePAM 5 MG TABLET PO ONE (06:00)
[2022-08-13 10:05] VITALS: BP 125/71; PULSE 61; TEMP 98
[2022-08-13] MEDS: CARVEDILOL 25 MG TABLET (FP) PO SCH (10:31)
[2022-08-13] MEDS: PRENATAL VITAMINS W/ FOLIC ACID TABLET (FP) PO SCH (10:31)
[2022-08-13] MEDS: ESCITALOPRAM OXALATE 20 MG TABLET PO SCH (10:31)
[2022-08-13] MEDS: LOSARTAN POTASSIUM 50 MG TABLET PO SCH (10:31)
== END 2022-08-13 11:35 | disposition home or self-care (01) | DRG 896 ==
LOC: YASAS 16:59 → Y6N 21:10
PROVIDERS: ADMIT Allergy & Immunology; ATTEND Surgery
PROC: HZ2ZZZZ Detoxification Services for Substance Abuse Treatment (ICD-10-PCS; principal; 2022-08-08)
DX: F10.230 Alcohol dependence with withdrawal, uncomplicated (principal); U07.1 COVID-19; F14.20 Cocaine dependence, uncomplicated; F19.282 Other psychoactive substance dependence with psychoactive substance-induced sleep disorder; F19.24 Other psychoactive substance dependence with psychoactive substance-induced mood disorder; F32.A Depression, unspecified; F41.9 Anxiety disorder, unspecified; F43.10 Post-traumatic stress disorder, unspecified; I10 Essential (primary) hypertension; M17.11 Unilateral primary osteoarthritis, right knee; Z62.810 Personal history of physical and sexual abuse in childhood; Z87.891 Personal history of nicotine dependence
CPT/HCPCS: 36415; 80053; 85027; 86780; C9803-CS; U0003; U0005

== ENCOUNTER 2022-09-20 11:57 | Inpatient (IN) | payer OTHER ==
[2022-09-20 12:32] VITALS: BMI 29.2
[2022-09-20] MEDS ORDERED: MAGNESIUM HYDROX 2400MG/30ML ORAL SUSPENSION 30 ML CUP PO PRN (13:42)
[2022-09-20] MEDS ORDERED: BISMUTH SUBSALICYLATE 524 MG/30 ML PO PRN (13:42)
[2022-09-20] MEDS ORDERED: IBUPROFEN 600 MG TABLET (FP) PO PRN (13:42)
[2022-09-20] MEDS ORDERED: MAG HYDROX/AL HYDROX/SIMETH 30 ML UNIT-DOSE CUP PO PRN (13:42)
[2022-09-20] MEDS ORDERED: ONDANSETRON *ODT* 4 MG TABLET SL PRN (13:42)
[2022-09-20] MEDS ORDERED: IBUPROFEN 400 MG TABLET (FP) PO PRN (13:42)
[2022-09-20] MEDS ORDERED: NALOXONE HCL (KLOXXADO) 8 MG SPRAY NS PRN (13:42)
[2022-09-20] MEDS ORDERED: LOPERAMIDE HCL 2 MG CAPSULE PO PRN (13:42)
[2022-09-20] MEDS ORDERED: ACETAMINOPHEN 325 MG TABLET (FP) PO PRN ×2 (13:42)
[2022-09-20] MEDS ORDERED: MAGNESIUM CITRATE 300 ML BOTTLE PO PRN (13:42)
[2022-09-20] MEDS ORDERED: DICYCLOMINE HCL 10 MG CAPSULE PO PRN (13:42)
[2022-09-20] MEDS ORDERED: BENZOCAINE/MENTHOL (CHLORASEPTIC ) LOZENGE MM PRN (13:42)
[2022-09-20] MEDS: LOSARTAN POTASSIUM 50 MG TABLET PO SCH (14:25)
[2022-09-20] MEDS: METHOCARBAMOL 500 MG TABLET PO PRN (14:26)
[2022-09-20] MEDS: PRENATAL VITAMINS W/ FOLIC ACID TABLET (FP) PO SCH (14:43)
[2022-09-20] MEDS: CARVEDILOL 25 MG TABLET (FP) PO SCH ×2 (15:05→22:12)
[2022-09-20 16:15] LABS: CALCIUM 9.4 mg/dL (8.5-10.1)
[2022-09-20 16:16] LABS: BLOOD UREA NITROGEN 17.1 mg/dL (7-18)
[2022-09-20 16:20] LABS: BILIRUBIN,TOTAL 0.5 mg/dL (0.2-1); HEMATOCRIT 40.6 % (35.4-49); HEMOGLOBIN 13.7 GM/dL (11.7-16.9); MCH 31.8 pg (25.7-33.7); MCHC 33.6 g/dl (32.0-35.9); MEAN CELL VOLUME 94.6 fl (80-96); MEAN PLT VOLUME 8.2 fl (7.5-11.1); PLATELET COUNT 210 10^3/uL (134-434); RBC 4.29 M/mm3 (4.00-5.60); RDW 13.7 % (11.9-15.9); TOT PROT 8.1 g/dl (6.4-8.2); WHITE BLOOD COUNT 4.4 K/mm3 (4.0-10.0)
[2022-09-20] MEDS: diazePAM 5 MG TABLET PO SCH ×2 (17:20→22:13)
[2022-09-20] MEDS: THIAMINE HCL 100 MG TABLET (FP) PO SCH (22:12)
[2022-09-20] MEDS: MELATONIN 5 MG TABLETS PO SCH (22:47)
[2022-09-21] MEDS: diazePAM 5 MG TABLET PO SCH ×4 (05:49→21:59)
[2022-09-21] MEDS: LOSARTAN POTASSIUM 50 MG TABLET PO SCH (10:44)
[2022-09-21] MEDS: ESCITALOPRAM OXALATE 20 MG TABLET PO SCH (10:44)
[2022-09-21] MEDS: PRENATAL VITAMINS W/ FOLIC ACID TABLET (FP) PO SCH (10:44)
[2022-09-21] MEDS: METHOCARBAMOL 500 MG TABLET PO PRN (10:44)
[2022-09-21] MEDS: CARVEDILOL 25 MG TABLET (FP) PO SCH ×2 (10:44→21:57)
[2022-09-21] MEDS: THIAMINE HCL 100 MG TABLET (FP) PO SCH (21:57)
[2022-09-21] MEDS: MELATONIN 5 MG TABLETS PO SCH (21:59)
[2022-09-22] MEDS: diazePAM 5 MG TABLET PO SCH ×3 (05:28→22:53)
[2022-09-22] MEDS: LOSARTAN POTASSIUM 50 MG TABLET PO SCH (10:22)
[2022-09-22] MEDS: PRENATAL VITAMINS W/ FOLIC ACID TABLET (FP) PO SCH (10:22)
[2022-09-22] MEDS: CARVEDILOL 25 MG TABLET (FP) PO SCH ×2 (10:22→22:53)
[2022-09-22] MEDS: METHOCARBAMOL 500 MG TABLET PO PRN (10:22)
[2022-09-22] MEDS: ESCITALOPRAM OXALATE 20 MG TABLET PO SCH (10:22)
[2022-09-22] MEDS: MELATONIN 5 MG TABLETS PO SCH (22:53)
[2022-09-22] MEDS: THIAMINE HCL 100 MG TABLET (FP) PO SCH (22:53)
[2022-09-23] MEDS: diazePAM 5 MG TABLET PO SCH ×2 (05:36→17:53)
[2022-09-23] MEDS: CARVEDILOL 25 MG TABLET (FP) PO SCH ×2 (10:00→22:35)
[2022-09-23] MEDS: LOSARTAN POTASSIUM 50 MG TABLET PO SCH (10:00)
[2022-09-23] MEDS: ESCITALOPRAM OXALATE 20 MG TABLET PO SCH (10:00)
[2022-09-23] MEDS: PRENATAL VITAMINS W/ FOLIC ACID TABLET (FP) PO SCH (10:00)
[2022-09-23] MEDS: MELATONIN 5 MG TABLETS PO SCH (22:36)
[2022-09-23] MEDS: THIAMINE HCL 100 MG TABLET (FP) PO SCH (22:36)
[2022-09-24] MEDS ORDERED: diazePAM 5 MG TABLET PO ONE (06:00)
[2022-09-24] MEDS: CARVEDILOL 25 MG TABLET (FP) PO SCH ×2 (10:10→22:31)
[2022-09-24] MEDS: LOSARTAN POTASSIUM 50 MG TABLET PO SCH (10:10)
[2022-09-24] MEDS: PRENATAL VITAMINS W/ FOLIC ACID TABLET (FP) PO SCH (10:10)
[2022-09-24] MEDS: ESCITALOPRAM OXALATE 20 MG TABLET PO SCH (10:10)
[2022-09-24] MEDS: MELATONIN 5 MG TABLETS PO SCH (22:31)
[2022-09-24] MEDS: THIAMINE HCL 100 MG TABLET (FP) PO SCH (22:31)
[2022-09-25 09:41] VITALS: BP 116/75; PULSE 57; RESP 17; TEMP 97.6
[2022-09-25] MEDS: CARVEDILOL 25 MG TABLET (FP) PO SCH (10:30)
[2022-09-25] MEDS: LOSARTAN POTASSIUM 50 MG TABLET PO SCH (10:30)
[2022-09-25] MEDS: ESCITALOPRAM OXALATE 20 MG TABLET PO SCH (10:30)
[2022-09-25] MEDS: PRENATAL VITAMINS W/ FOLIC ACID TABLET (FP) PO SCH (10:30)
== END 2022-09-25 13:05 | disposition other institution (70) | DRG 897 ==
LOC: YASAS 11:57 → Y6N 13:56
PROVIDERS: ADMIT Allergy & Immunology; ATTEND Surgery
PROC: HZ2ZZZZ Detoxification Services for Substance Abuse Treatment (ICD-10-PCS; principal; 2022-09-20)
DX: F10.230 Alcohol dependence with withdrawal, uncomplicated (principal); F14.20 Cocaine dependence, uncomplicated; F17.210 Nicotine dependence, cigarettes, uncomplicated; F20.9 Schizophrenia, unspecified; F32.A Depression, unspecified; I10 Essential (primary) hypertension; M17.11 Unilateral primary osteoarthritis, right knee; Z62.810 Personal history of physical and sexual abuse in childhood
CPT/HCPCS: 36415; 80053; 85027; 86780; C9803-CS; U0003; U0005

== ENCOUNTER 2022-09-25 13:10 | Inpatient (IN) | payer OTHER ==
[~2022-09-25 13:10] MED LIST changes: -MAG HYDROX/AL HYDROX/SIMETH 30 ML UNIT-DOSE CUP PO PRN; +NICOTINE 10 MG CARTRIDGE (INHALER) IH PRN; +NICOTINE 7 MG/24 HOURS TOPICAL PATCH TD PRN; +NICOTINE POLACRILEX 2 MG GUM BC PRN; -P-EPHED 60MG/TRIPROLIDI 2.5MG TABLET PO PRN; -guaiFENesin 200 MG/10 ML 10 ML UNIT-DOSE CUPS PO PRN
[2022-09-25] MEDS: THIAMINE HCL 100 MG TABLET (FP) PO SCH (21:04)
[2022-09-25] MEDS: CARVEDILOL 25 MG TABLET (FP) PO SCH (21:04)
[2022-09-25] MEDS: MELATONIN 5 MG TABLETS PO SCH (21:04)
[2022-09-26] MEDS: PRENATAL VITAMINS W/ FOLIC ACID TABLET (FP) PO SCH (09:33)
[2022-09-26] MEDS: LOSARTAN POTASSIUM 25 MG TABLET PO SCH (09:34)
[2022-09-26] MEDS: ESCITALOPRAM OXALATE 20 MG TABLET PO SCH (09:35)
[2022-09-26] MEDS: CARVEDILOL 25 MG TABLET (FP) PO SCH ×2 (11:34→21:10)
[2022-09-26] MEDS: MAG HYDROX/AL HYDROX/SIMETH 30 ML UNIT-DOSE CUP PO PRN (11:43)
[2022-09-26] MEDS: MELATONIN 5 MG TABLETS PO SCH (21:09)
[2022-09-26] MEDS: THIAMINE HCL 100 MG TABLET (FP) PO SCH (21:10)
[2022-09-27] MEDS: LOSARTAN POTASSIUM 25 MG TABLET PO SCH (09:47)
[2022-09-27] MEDS: PRENATAL VITAMINS W/ FOLIC ACID TABLET (FP) PO SCH (09:47)
[2022-09-27] MEDS: ESCITALOPRAM OXALATE 20 MG TABLET PO SCH (09:47)
[2022-09-27] MEDS: CARVEDILOL 25 MG TABLET (FP) PO SCH ×2 (09:47→21:03)
[2022-09-27] MEDS: THIAMINE HCL 100 MG TABLET (FP) PO SCH (21:03)
[2022-09-27] MEDS: MELATONIN 5 MG TABLETS PO SCH (21:03)
[2022-09-28] MEDS: CARVEDILOL 25 MG TABLET (FP) PO SCH ×2 (09:33→21:04)
[2022-09-28] MEDS: ESCITALOPRAM OXALATE 20 MG TABLET PO SCH (09:33)
[2022-09-28] MEDS: PRENATAL VITAMINS W/ FOLIC ACID TABLET (FP) PO SCH (09:33)
[2022-09-28] MEDS: LOSARTAN POTASSIUM 25 MG TABLET PO SCH (09:34)
[2022-09-28] MEDS: THIAMINE HCL 100 MG TABLET (FP) PO SCH (21:04)
[2022-09-28] MEDS: MELATONIN 5 MG TABLETS PO SCH (21:04)
[2022-09-29] MEDS: LOSARTAN POTASSIUM 25 MG TABLET PO SCH (09:36)
[2022-09-29] MEDS: PRENATAL VITAMINS W/ FOLIC ACID TABLET (FP) PO SCH (09:37)
[2022-09-29] MEDS: ESCITALOPRAM OXALATE 20 MG TABLET PO SCH (09:37)
[2022-09-29] MEDS: CARVEDILOL 25 MG TABLET (FP) PO SCH ×2 (09:38→21:05)
[2022-09-29] MEDS: THIAMINE HCL 100 MG TABLET (FP) PO SCH (21:05)
[2022-09-29] MEDS: MELATONIN 5 MG TABLETS PO SCH (21:05)
[2022-09-30] MEDS: PRENATAL VITAMINS W/ FOLIC ACID TABLET (FP) PO SCH (09:44)
[2022-09-30] MEDS: ESCITALOPRAM OXALATE 20 MG TABLET PO SCH (09:45)
[2022-09-30] MEDS: LOSARTAN POTASSIUM 25 MG TABLET PO SCH (09:45)
[2022-09-30] MEDS: CARVEDILOL 25 MG TABLET (FP) PO SCH ×2 (10:39→21:04)
[2022-09-30] MEDS: THIAMINE HCL 100 MG TABLET (FP) PO SCH (21:02)
[2022-09-30] MEDS: MELATONIN 5 MG TABLETS PO SCH (21:02)
[2022-10-01] MEDS: IBUPROFEN 400 MG TABLET (FP) PO PRN (07:29)
[2022-10-01] MEDS: PRENATAL VITAMINS W/ FOLIC ACID TABLET (FP) PO SCH (09:32)
[2022-10-01] MEDS: ESCITALOPRAM OXALATE 20 MG TABLET PO SCH (09:32)
[2022-10-01] MEDS: LOSARTAN POTASSIUM 25 MG TABLET PO SCH (09:32)
[2022-10-01] MEDS: CARVEDILOL 25 MG TABLET (FP) PO SCH ×2 (10:23→21:08)
[2022-10-01] MEDS: MELATONIN 5 MG TABLETS PO SCH (21:08)
[2022-10-01] MEDS: THIAMINE HCL 100 MG TABLET (FP) PO SCH (21:08)
[2022-10-02] MEDS: IBUPROFEN 400 MG TABLET (FP) PO PRN (07:07)
[2022-10-02] MEDS: CARVEDILOL 25 MG TABLET (FP) PO SCH ×2 (09:39→21:03)
[2022-10-02] MEDS: ESCITALOPRAM OXALATE 20 MG TABLET PO SCH (09:39)
[2022-10-02] MEDS: PRENATAL VITAMINS W/ FOLIC ACID TABLET (FP) PO SCH (09:39)
[2022-10-02] MEDS: LOSARTAN POTASSIUM 25 MG TABLET PO SCH (09:40)
[2022-10-02] MEDS: MELATONIN 5 MG TABLETS PO SCH (21:03)
[2022-10-02] MEDS: THIAMINE HCL 100 MG TABLET (FP) PO SCH (21:03)
[2022-10-03] MEDS: IBUPROFEN 400 MG TABLET (FP) PO PRN (06:51)
[2022-10-03] MEDS: PRENATAL VITAMINS W/ FOLIC ACID TABLET (FP) PO SCH (09:37)
[2022-10-03] MEDS: ESCITALOPRAM OXALATE 20 MG TABLET PO SCH (09:37)
[2022-10-03] MEDS: CARVEDILOL 25 MG TABLET (FP) PO SCH ×2 (09:37→21:10)
[2022-10-03] MEDS: LOSARTAN POTASSIUM 50 MG TABLET PO SCH (10:39)
[2022-10-03] MEDS: THIAMINE HCL 100 MG TABLET (FP) PO SCH (21:10)
[2022-10-03] MEDS: MELATONIN 5 MG TABLETS PO SCH (21:10)
[2022-10-04] MEDS: PRENATAL VITAMINS W/ FOLIC ACID TABLET (FP) PO SCH (09:36)
[2022-10-04] MEDS: ESCITALOPRAM OXALATE 20 MG TABLET PO SCH (09:37)
[2022-10-04] MEDS: IBUPROFEN 400 MG TABLET (FP) PO PRN (09:38)
[2022-10-04] MEDS: CARVEDILOL 25 MG TABLET (FP) PO SCH ×2 (09:39→21:13)
[2022-10-04] MEDS: LOSARTAN POTASSIUM 50 MG TABLET PO SCH (09:39)
[2022-10-04] MEDS: guaiFENesin 200 MG/10 ML 10 ML UNIT-DOSE CUPS PO PRN ×2 (11:18→21:14)
[2022-10-04] MEDS: MELATONIN 5 MG TABLETS PO SCH (21:12)
[2022-10-04] MEDS: THIAMINE HCL 100 MG TABLET (FP) PO SCH (21:13)
[2022-10-05] MEDS: IBUPROFEN 400 MG TABLET (FP) PO PRN (06:24)
[2022-10-05] MEDS: PRENATAL VITAMINS W/ FOLIC ACID TABLET (FP) PO SCH (09:38)
[2022-10-05] MEDS: ESCITALOPRAM OXALATE 20 MG TABLET PO SCH (09:38)
[2022-10-05] MEDS: CARVEDILOL 25 MG TABLET (FP) PO SCH ×2 (10:24→21:09)
[2022-10-05] MEDS: LOSARTAN POTASSIUM 50 MG TABLET PO SCH (10:25)
[2022-10-05] MEDS: MELATONIN 5 MG TABLETS PO SCH (21:09)
[2022-10-05] MEDS: THIAMINE HCL 100 MG TABLET (FP) PO SCH (21:09)
[2022-10-06] MEDS: IBUPROFEN 400 MG TABLET (FP) PO PRN ×2 (06:14→21:04)
[2022-10-06] MEDS: ESCITALOPRAM OXALATE 20 MG TABLET PO SCH (09:27)
[2022-10-06] MEDS: LOSARTAN POTASSIUM 50 MG TABLET PO SCH (09:27)
[2022-10-06] MEDS: PRENATAL VITAMINS W/ FOLIC ACID TABLET (FP) PO SCH (09:27)
[2022-10-06] MEDS: CARVEDILOL 25 MG TABLET (FP) PO SCH ×2 (09:27→21:04)
[2022-10-06] MEDS: MELATONIN 5 MG TABLETS PO SCH (21:02)
[2022-10-06] MEDS: THIAMINE HCL 100 MG TABLET (FP) PO SCH (21:02)
[2022-10-07] MEDS: IBUPROFEN 400 MG TABLET (FP) PO PRN (06:09)
[2022-10-07] MEDS: PRENATAL VITAMINS W/ FOLIC ACID TABLET (FP) PO SCH (09:39)
[2022-10-07] MEDS: ESCITALOPRAM OXALATE 20 MG TABLET PO SCH (09:39)
[2022-10-07] MEDS: CARVEDILOL 25 MG TABLET (FP) PO SCH ×2 (10:39→21:03)
[2022-10-07] MEDS: LOSARTAN POTASSIUM 50 MG TABLET PO SCH (10:39)
[2022-10-07] MEDS: THIAMINE HCL 100 MG TABLET (FP) PO SCH (21:03)
[2022-10-07] MEDS: MELATONIN 5 MG TABLETS PO SCH (21:03)
[2022-10-08 06:27] VITALS: RESP 18
[2022-10-08] MEDS: ESCITALOPRAM OXALATE 20 MG TABLET PO SCH (09:24)
[2022-10-08] MEDS: PRENATAL VITAMINS W/ FOLIC ACID TABLET (FP) PO SCH (09:24)
[2022-10-08] MEDS: CARVEDILOL 25 MG TABLET (FP) PO SCH ×2 (09:25→21:01)
[2022-10-08] MEDS: LOSARTAN POTASSIUM 50 MG TABLET PO SCH (09:26)
[2022-10-08] MEDS: guaiFENesin 200 MG/10 ML 10 ML UNIT-DOSE CUPS PO PRN (11:22)
[2022-10-08] MEDS: THIAMINE HCL 100 MG TABLET (FP) PO SCH (21:00)
[2022-10-08] MEDS: MELATONIN 5 MG TABLETS PO SCH (21:00)
[2022-10-09] MEDS: IBUPROFEN 400 MG TABLET (FP) PO PRN (02:47)
[2022-10-09] MEDS: hydrOXYzine PAMOATE 25 MG CAPSULE (FP) PO PRN ×2 (02:48→21:10)
[2022-10-09] MEDS: ESCITALOPRAM OXALATE 20 MG TABLET PO SCH (09:19)
[2022-10-09] MEDS: PRENATAL VITAMINS W/ FOLIC ACID TABLET (FP) PO SCH (09:19)
[2022-10-09] MEDS: LOSARTAN POTASSIUM 50 MG TABLET PO SCH (09:20)
[2022-10-09] MEDS: CARVEDILOL 25 MG TABLET (FP) PO SCH ×2 (09:20→21:10)
[2022-10-09] MEDS: THIAMINE HCL 100 MG TABLET (FP) PO SCH (21:10)
[2022-10-09] MEDS: MELATONIN 5 MG TABLETS PO SCH (21:10)
[2022-10-10] MEDS: PRENATAL VITAMINS W/ FOLIC ACID TABLET (FP) PO SCH (09:15)
[2022-10-10] MEDS: ESCITALOPRAM OXALATE 20 MG TABLET PO SCH (09:15)
[2022-10-10] MEDS: CARVEDILOL 25 MG TABLET (FP) PO SCH ×2 (09:16→21:05)
[2022-10-10] MEDS: LOSARTAN POTASSIUM 50 MG TABLET PO SCH (09:51)
[2022-10-10] MEDS: THIAMINE HCL 100 MG TABLET (FP) PO SCH (21:04)
[2022-10-10] MEDS: MELATONIN 5 MG TABLETS PO SCH (21:05)
[2022-10-10] MEDS: MAG HYDROX/AL HYDROX/SIMETH 30 ML UNIT-DOSE CUP PO PRN (21:57)
[2022-10-11] MEDS: CARVEDILOL 25 MG TABLET (FP) PO SCH ×2 (09:22→22:03)
[2022-10-11] MEDS: LOSARTAN POTASSIUM 50 MG TABLET PO SCH (09:22)
[2022-10-11] MEDS: PRENATAL VITAMINS W/ FOLIC ACID TABLET (FP) PO SCH (09:22)
[2022-10-11] MEDS: ESCITALOPRAM OXALATE 20 MG TABLET PO SCH (09:22)
[2022-10-11] MEDS: IBUPROFEN 400 MG TABLET (FP) PO PRN (10:50)
[2022-10-11] MEDS: THIAMINE HCL 100 MG TABLET (FP) PO SCH (21:05)
[2022-10-11] MEDS: MELATONIN 5 MG TABLETS PO SCH (21:05)
[2022-10-12] MEDS: PRENATAL VITAMINS W/ FOLIC ACID TABLET (FP) PO SCH (09:29)
[2022-10-12] MEDS: LOSARTAN POTASSIUM 50 MG TABLET PO SCH (09:29)
[2022-10-12] MEDS: CARVEDILOL 25 MG TABLET (FP) PO SCH ×2 (09:30→21:07)
[2022-10-12] MEDS: ESCITALOPRAM OXALATE 20 MG TABLET PO SCH (09:30)
[2022-10-12] MEDS: MELATONIN 5 MG TABLETS PO SCH (21:06)
[2022-10-12] MEDS: THIAMINE HCL 100 MG TABLET (FP) PO SCH (21:59)
[2022-10-13] MEDS: LOSARTAN POTASSIUM 50 MG TABLET PO SCH (09:27)
[2022-10-13] MEDS: PRENATAL VITAMINS W/ FOLIC ACID TABLET (FP) PO SCH (09:27)
[2022-10-13] MEDS: ESCITALOPRAM OXALATE 20 MG TABLET PO SCH (09:27)
[2022-10-13] MEDS: CARVEDILOL 25 MG TABLET (FP) PO SCH ×2 (09:28→21:05)
[2022-10-13] MEDS: THIAMINE HCL 100 MG TABLET (FP) PO SCH (21:05)
[2022-10-13] MEDS: MELATONIN 5 MG TABLETS PO SCH (21:05)
[2022-10-14] MEDS: PRENATAL VITAMINS W/ FOLIC ACID TABLET (FP) PO SCH (09:22)
[2022-10-14] MEDS: LOSARTAN POTASSIUM 50 MG TABLET PO SCH (09:22)
[2022-10-14] MEDS: ESCITALOPRAM OXALATE 20 MG TABLET PO SCH (09:22)
[2022-10-14] MEDS: METHYL SALICYLATE/MENTHOL OINT 30 GM TUBE TP SCH ×2 (09:22→21:07)
[2022-10-14] MEDS: CARVEDILOL 25 MG TABLET (FP) PO SCH ×2 (09:22→21:07)
[2022-10-14] MEDS: MELATONIN 5 MG TABLETS PO SCH (21:06)
[2022-10-14] MEDS: THIAMINE HCL 100 MG TABLET (FP) PO SCH (21:07)
[2022-10-15] MEDS: hydrOXYzine PAMOATE 25 MG CAPSULE (FP) PO PRN (01:06)
[2022-10-15] MEDS: PRENATAL VITAMINS W/ FOLIC ACID TABLET (FP) PO SCH (09:23)
[2022-10-15] MEDS: ESCITALOPRAM OXALATE 20 MG TABLET PO SCH (09:23)
[2022-10-15] MEDS: CARVEDILOL 25 MG TABLET (FP) PO SCH ×2 (09:23→21:09)
[2022-10-15] MEDS: LOSARTAN POTASSIUM 50 MG TABLET PO SCH (09:23)
[2022-10-15] MEDS: METHYL SALICYLATE/MENTHOL OINT 30 GM TUBE TP SCH ×2 (09:24→21:09)
[2022-10-15] MEDS: THIAMINE HCL 100 MG TABLET (FP) PO SCH (21:09)
[2022-10-15] MEDS: MELATONIN 5 MG TABLETS PO SCH (21:09)
[2022-10-16] MEDS: PRENATAL VITAMINS W/ FOLIC ACID TABLET (FP) PO SCH (09:18)
[2022-10-16] MEDS: CARVEDILOL 25 MG TABLET (FP) PO SCH ×2 (09:18→21:00)
[2022-10-16] MEDS: LOSARTAN POTASSIUM 50 MG TABLET PO SCH (09:18)
[2022-10-16] MEDS: ESCITALOPRAM OXALATE 20 MG TABLET PO SCH (09:18)
[2022-10-16] MEDS: IBUPROFEN 400 MG TABLET (FP) PO PRN (09:19)
[2022-10-16] MEDS: METHYL SALICYLATE/MENTHOL OINT 30 GM TUBE TP SCH ×2 (09:21→21:01)
[2022-10-16] MEDS: MELATONIN 5 MG TABLETS PO SCH (21:00)
[2022-10-16] MEDS: THIAMINE HCL 100 MG TABLET (FP) PO SCH (21:01)
[2022-10-17 06:43] VITALS: TEMP 97.5
[2022-10-17] MEDS: CARVEDILOL 25 MG TABLET (FP) PO SCH (09:57)
[2022-10-17] MEDS: LOSARTAN POTASSIUM 50 MG TABLET PO SCH (09:57)
[2022-10-17] MEDS: PRENATAL VITAMINS W/ FOLIC ACID TABLET (FP) PO SCH (09:57)
[2022-10-17] MEDS: ESCITALOPRAM OXALATE 20 MG TABLET PO SCH (09:57)
[2022-10-17] MEDS: METHYL SALICYLATE/MENTHOL OINT 30 GM TUBE TP SCH (09:58)
[2022-10-17 10:23] VITALS: BP 117/63; PULSE 62
== END 2022-10-17 12:10 | disposition home or self-care (01) | DRG 895 ==
LOC: YASAS 13:10 → Y5N 13:11
PROVIDERS: ADMIT Allergy & Immunology; ATTEND Psychiatry & Neurology Pain Medicine
PROC: HZ42ZZZ Group Counseling for Substance Abuse Treatment, Cognitive-Behavioral (ICD-10-PCS; principal; 2022-09-25)
DX: F10.20 Alcohol dependence, uncomplicated (principal); F14.20 Cocaine dependence, uncomplicated; F32.A Depression, unspecified; I10 Essential (primary) hypertension; M17.11 Unilateral primary osteoarthritis, right knee; Z72.0 Tobacco use

== ENCOUNTER 2022-12-17 08:53 | Inpatient (IN) | payer OTHER ==
[2022-12-17 09:59] VITALS: BMI 32.1
[2022-12-17] MEDS ORDERED: BISMUTH SUBSALICYLATE 524 MG/30 ML PO PRN (10:43)
[2022-12-17] MEDS ORDERED: POLYETHYLENE GLYCOL (HEALTHYLAX) 3350 17 GM PACKET PO PRN (10:43)
[2022-12-17] MEDS ORDERED: MAGNESIUM HYDROX 2400MG/30ML ORAL SUSPENSION 30 ML CUP PO PRN (10:43)
[2022-12-17] MEDS ORDERED: ACETAMINOPHEN 325 MG TABLET (FP) PO PRN (10:43)
[2022-12-17] MEDS ORDERED: LOPERAMIDE HCL 2 MG CAPSULE PO PRN (10:43)
[2022-12-17] MEDS ORDERED: hydrOXYzine PAMOATE 25 MG CAPSULE (FP) PO PRN (10:43)
[2022-12-17] MEDS ORDERED: NALOXONE HCL (KLOXXADO) 8 MG SPRAY NS PRN (10:43)
[2022-12-17] MEDS ORDERED: DICYCLOMINE HCL 10 MG CAPSULE PO PRN (10:43)
[2022-12-17] MEDS ORDERED: ONDANSETRON *ODT* 4 MG TABLET SL PRN (10:43)
[2022-12-17] MEDS ORDERED: IBUPROFEN 600 MG TABLET (FP) PO PRN (10:43)
[2022-12-17] MEDS ORDERED: IBUPROFEN 400 MG TABLET (FP) PO PRN (10:43)
[2022-12-17] MEDS ORDERED: METHOCARBAMOL 500 MG TABLET PO PRN (10:43)
[2022-12-17] MEDS ORDERED: MAG HYDROX/AL HYDROX/SIMETH 30 ML UNIT-DOSE CUP PO PRN (10:43)
[2022-12-17] MEDS ORDERED: NICOTINE 10 MG CARTRIDGE (INHALER) IH PRN (10:43)
[2022-12-17] MEDS ORDERED: chlordiazePOXIDE HCL 25 MG CAPSULE PO PRN (10:43)
[2022-12-17] MEDS ORDERED: BENZOCAINE/MENTHOL (CHLORASEPTIC ) LOZENGE MM PRN (10:43)
[2022-12-17] MEDS: chlordiazePOXIDE HCL 25 MG CAPSULE PO SCH ×3 (11:01→22:00)
[2022-12-17] MEDS ORDERED: chlordiazePOXIDE HCL 25 MG CAPSULE ONE (11:04)
[2022-12-17] MEDS: ACETAMINOPHEN 325 MG TABLET (FP) PO PRN (17:28)
[2022-12-17] MEDS: MELATONIN 5 MG TABLETS PO SCH (21:59)
[2022-12-17] MEDS: THIAMINE HCL 100 MG TABLET (FP) PO SCH (21:59)
[2022-12-17] MEDS: CARVEDILOL 25 MG TABLET (FP) PO SCH (21:59)
[2022-12-18] MEDS: chlordiazePOXIDE HCL 25 MG CAPSULE PO SCH ×4 (05:49→22:07)
[2022-12-18] MEDS ORDERED: ESCITALOPRAM OXALATE 20 MG TABLET PO SCH (10:00)
[2022-12-18] MEDS: CARVEDILOL 25 MG TABLET (FP) PO SCH ×2 (10:21→22:07)
[2022-12-18] MEDS: ESCITALOPRAM OXALATE 20 MG TABLET PO SCH (10:21)
[2022-12-18] MEDS: LOSARTAN POTASSIUM 50 MG TABLET PO SCH (10:22)
[2022-12-18] MEDS: PRENATAL VITAMINS W/ FOLIC ACID TABLET (FP) PO SCH (10:22)
[2022-12-18] MEDS: NICOTINE 21 MG/24 HOURS TOPICAL PATCH TD SCH (10:22)
[2022-12-18 11:55] LABS: HEMATOCRIT 39.5 % (35.4-49); HEMOGLOBIN 13.2 GM/dL (11.7-16.9); MCH 31.5 pg (25.7-33.7); MCHC 33.3 g/dl (32.0-35.9); MEAN CELL VOLUME 94.8 fl (80-96); MEAN PLT VOLUME 8.4 fl (7.5-11.1); PLATELET COUNT 219 10^3/uL (134-434); RBC 4.17 M/mm3 (4.00-5.60); RDW 14.2 % (11.9-15.9); WHITE BLOOD COUNT 3.5 K/mm3 (4.0-10.0)
[2022-12-18 12:06] LABS: BLOOD UREA NITROGEN 16.9 mg/dL (7-18); CALCIUM 9.4 mg/dL (8.5-10.1)
[2022-12-18 12:07] LABS: ALBUMIN 3.6 g/dl (3.4-5.0)
[2022-12-18 12:10] LABS: CREATININE 1.1 mg/dL (0.55-1.3)
[2022-12-18 12:11] LABS: BILIRUBIN,TOTAL 0.2 mg/dL (0.2-1); TOT PROT 7.5 g/dl (6.4-8.2)
[2022-12-18] MEDS: ACETAMINOPHEN 325 MG TABLET (FP) PO PRN (18:02)
[2022-12-18] MEDS: MELATONIN 5 MG TABLETS PO SCH (22:07)
[2022-12-18] MEDS: THIAMINE HCL 100 MG TABLET (FP) PO SCH (22:07)
[2022-12-19] MEDS: chlordiazePOXIDE HCL 25 MG CAPSULE PO SCH ×4 (05:07→22:11)
[2022-12-19] MEDS: CARVEDILOL 25 MG TABLET (FP) PO SCH ×2 (10:14→22:11)
[2022-12-19] MEDS: ESCITALOPRAM OXALATE 20 MG TABLET PO SCH (10:14)
[2022-12-19] MEDS: LOSARTAN POTASSIUM 50 MG TABLET PO SCH (10:14)
[2022-12-19] MEDS: PRENATAL VITAMINS W/ FOLIC ACID TABLET (FP) PO SCH (10:14)
[2022-12-19] MEDS: NICOTINE 21 MG/24 HOURS TOPICAL PATCH TD SCH (10:14)
[2022-12-19 13:00] LABS: HIV INTERPRETATION NEGATIVE (NEGATIVE)
[2022-12-19] MEDS: ACETAMINOPHEN 325 MG TABLET (FP) PO PRN (17:28)
[2022-12-19] MEDS: MELATONIN 5 MG TABLETS PO SCH (22:11)
[2022-12-19] MEDS: THIAMINE HCL 100 MG TABLET (FP) PO SCH (22:11)
[2022-12-20] MEDS ORDERED: chlordiazePOXIDE HCL 10 MG CAPSULE PO PRN
[2022-12-20] MEDS: chlordiazePOXIDE HCL 10 MG CAPSULE PO SCH ×4 (05:44→22:07)
[2022-12-20] MEDS: LOSARTAN POTASSIUM 50 MG TABLET PO SCH (10:12)
[2022-12-20] MEDS: PRENATAL VITAMINS W/ FOLIC ACID TABLET (FP) PO SCH (10:12)
[2022-12-20] MEDS: CARVEDILOL 25 MG TABLET (FP) PO SCH ×2 (10:12→22:06)
[2022-12-20] MEDS: NICOTINE 21 MG/24 HOURS TOPICAL PATCH TD SCH (10:13)
[2022-12-20] MEDS: ESCITALOPRAM OXALATE 20 MG TABLET PO SCH (10:13)
[2022-12-20] MEDS: ACETAMINOPHEN 325 MG TABLET (FP) PO PRN (17:09)
[2022-12-20] MEDS: THIAMINE HCL 100 MG TABLET (FP) PO SCH (22:06)
[2022-12-20] MEDS: MELATONIN 5 MG TABLETS PO SCH (22:06)
[2022-12-21] MEDS: chlordiazePOXIDE HCL 10 MG CAPSULE PO SCH ×2 (05:34→17:28)
[2022-12-21] MEDS: PRENATAL VITAMINS W/ FOLIC ACID TABLET (FP) PO SCH (10:16)
[2022-12-21] MEDS: ESCITALOPRAM OXALATE 20 MG TABLET PO SCH (10:16)
[2022-12-21] MEDS: LOSARTAN POTASSIUM 50 MG TABLET PO SCH (10:16)
[2022-12-21] MEDS: CARVEDILOL 25 MG TABLET (FP) PO SCH ×2 (10:17→22:12)
[2022-12-21] MEDS: NICOTINE 21 MG/24 HOURS TOPICAL PATCH TD SCH (10:25)
[2022-12-21] MEDS: MELATONIN 5 MG TABLETS PO SCH (22:11)
[2022-12-21] MEDS: THIAMINE HCL 100 MG TABLET (FP) PO SCH (22:12)
[2022-12-22] MEDS ORDERED: chlordiazePOXIDE HCL 10 MG CAPSULE PO ONE (05:00)
[2022-12-22 05:54] VITALS: BP 109/62; PULSE 60; RESP 18; TEMP 97.3
[2022-12-22] MEDS: CARVEDILOL 25 MG TABLET (FP) PO SCH (10:10)
[2022-12-22] MEDS: ESCITALOPRAM OXALATE 20 MG TABLET PO SCH (10:11)
[2022-12-22] MEDS: PRENATAL VITAMINS W/ FOLIC ACID TABLET (FP) PO SCH (10:11)
[2022-12-22] MEDS: NICOTINE 21 MG/24 HOURS TOPICAL PATCH TD SCH (10:11)
[2022-12-22] MEDS: LOSARTAN POTASSIUM 50 MG TABLET PO SCH (10:11)
== END 2022-12-22 10:16 | disposition home or self-care (01) | DRG 897 ==
LOC: YASAS 08:53 → Y3N 10:51
PROVIDERS: ADMIT Allergy & Immunology; ATTEND Family Medicine
PROC: HZ2ZZZZ Detoxification Services for Substance Abuse Treatment (ICD-10-PCS; principal; 2022-12-17)
DX: F10.230 Alcohol dependence with withdrawal, uncomplicated (principal); F20.9 Schizophrenia, unspecified; F19.24 Other psychoactive substance dependence with psychoactive substance-induced mood disorder; M19.90 Unspecified osteoarthritis, unspecified site; Z62.810 Personal history of physical and sexual abuse in childhood; Z87.891 Personal history of nicotine dependence; Z86.73 Personal history of transient ischemic attack (TIA), and cerebral infarction without residual deficits
CPT/HCPCS: 36415; 80053; 85027; 86780; 87389; 87811; C9803-CS; U0003; U0005